=== PATIENT | male | born 1990 | race Caucasian/White ===

== ENCOUNTER 2017-03-26 23:03 | Emergency (ER) | payer SELFPAY ==
[~2017-03-26] VITALS: Ht 180.3 cm; Wt 65.4 kg
[2017-03-26 23:07] VITALS: TEMP 36.6; Ht 180.3 cm; Wt 65.4 kg
[2017-03-26] MEDS ORDERED: SODIUM CHLORIDE 0.9% 1000ML 2,000 ML IV STA (23:13)
[2017-03-26] MEDS ORDERED: KETOROLAC TROMETHAMINE 30 MG/ML VIAL IV STA (23:40)
[2017-03-26] MEDS ORDERED: ONDANSETRON 8 MG/54 ML D5W IV STA (23:40)
[2017-03-26 23:43] LABS: BASO % 0.3 %; BASO ABS # 0.03 K/uL (0-0.2); COMPLETE YES; EOS % 4.1 %; HEMATOCRIT 41.5 % (42-52); IG% 0.1 %; LYMPH % 46.1 %; MEAN CELL VOLUME 89.6 fL (80-100); MEAN CORPUSCULAR HEMOGLOBIN 30.9 pg (25-34); MEAN CORPUSCULAR HGB CONC 34.5 g/dl (32-36); MEAN PLATELET VOLUME 11.2 fL (7.4-10.4); NEUT % 43.4 %; PLATELET COUNT 224 K/uL (130-400); RED BLOOD COUNT 4.63 M/uL (4.7-6.1); WHITE BLOOD COUNT 9.54 K/uL (4.8-10.8)
[2017-03-26] MEDS ORDERED: PRLSR20 PO (23:43)
[2017-03-26] MEDS ORDERED: SERT50TA PO (23:43)
[2017-03-26] MEDS ORDERED: OPTIRAY 320 IV PRN (23:45)
[2017-03-27 00:03] LABS: ALKALINE PHOSPHATASE 92 U/L (45-117); ALT/SGPT 27 U/L (12-78); AST/SGOT 14 U/L (15-37); BLOOD UREA NITROGEN 12 mg/dl (7-18); BUN/CREATININE RATIO 12.5 (10-20); CALCIUM 9.1 mg/dl (8.5-10.1); CARBON DIOXIDE 25 mmol/L (21-32); CHLORIDE 108 mmol/L (98-107); GLUCOSE 101 mg/dl (70-99); POTASSIUM 3.8 mmol/L (3.5-5.1); SODIUM 141 mmol/L (136-145)
[2017-03-27] MEDS ORDERED: MoRPHine SULFATE 4 MG/ML 1 ML CARP\\VIAL IV STA (00:50)
[2017-03-27] MEDS ORDERED: PROMETHAZINE HCL INJ 25 MG in SODIUM CHLORIDE 0.9% 50ML 50 ML IV STA (00:50)
[2017-03-27] MEDS ORDERED: PHENERGAN 25MG HOMEPACK PO ONE (02:15)
[2017-03-27] MEDS ORDERED: BENTYL HOME PACK 10 MG VIAL PO ONE (02:15)
[2017-03-27 02:24] LABS: URINE APPEARANCE CLEAR (CLEAR); URINE BILIRUBIN NEG (NEG); URINE COLOR YELLOW; URINE NITRITE NEG (NEG); URINE SPECIFIC GRAVITY 1.043 (1.000-1.030); UROBILINOGEN NEG (NEG); ZZUR CULT IF INDIC CLEAN CATCH NO
[2017-03-27 02:50] LABS: MANUAL MICROSCOPIC REQUIRED? NO; REVIEW REQ? NO
[2017-03-27 03:12] VITALS: BP 116/66; PULSE 52; O2SAT 98
--- NOTE | 2017-03-27 03:16 | EMERGENCY ROOM VISIT NOTE ---
History Report prepared by [place]: Ricco Gomez Under the Supervision of: Dr. Ronald Whitley M.D. First contact with patient: 23:13 Chief Complaint: GI ASSESSMENT Stated Complaint: DIZZY,LIGHTHEADED,SHAKY,VOMITING Nursing Triage Summary: Abdominal pain started yesterday. Tonight lightheaded, weakness, nausea, vomiting, diarrhea, and intermittent headache. History of Present Illness The patient is a 26 year old male who presents to the Emergency Room with complaints of constant abdominal pain that started yesterday. The patient rates his discomfort as an 8/10 in severity. He reports that his lower abdominal pain is worse than the rest of his abdominal pain. He states that today he was laying in bed when he started to become weak and lightheaded. The patient states that he then started to experience nausea, vomiting, diarrhea, and a pounding headache. He states that he has experienced four episodes of diarrhea. The patient denies taking any medications, eating anything unusual, being around someone sick, and experiencing theses symptoms in the past. He admits that he recently had a rotator cuff repair and endoscopies as a child for his history of acid reflux and esophagitis. He reports experiencing chronic back pain. The patient denies LOC, headache, fevers, chills, diaphoresis, visual changes, neck pain, chest pain, breathing difficulties, melena, hematochezia, urinary symptoms, numbness, lymphadenopathy, rash, or other complaints. Source of History: patient Onset: yesterday Position: abdomen Symptom Intensity: 8/10 Timing: constant Associated Symptoms: + nausea, + vomiting, + back pain, + diarrhea, + weakness Review of Systems See HPI for pertinent positives and negatives. A total of ten systems were reviewed and were otherwise negative. Past Medical & Surgical Medical Problems: (1) Hx of gastroesophageal reflux (GERD) Surgical Problems: (1) S/P rotator cuff repair Family History Patient reports no known family medical history. Social History Smoking Status: Never Smoker Occupation Status: employed Current/Historical Medications Scheduled Sertraline (Zoloft), 50 MG PO DAILY Scheduled PRN Omeprazole (Prilosec), 20 MG PO DAILY PRN for Heartburn Allergies Coded Allergies: Cefaclor (Verified Allergy, Unknown, unknown, 03/26/17) Physical Exam Vital Signs Date Time Temp Pulse Resp B/P (MAP) Pulse Ox O2 Delivery O2 Flow Rate FiO2 8/29/17 00:03 55 17 99 03/27/17 00:01 133/72 03/26/17 23:53 57 20 98 03/26/17 23:43 73 17 99 03/26/17 23:33 60 18 98 03/26/17 23:31 117/75 03/26/17 23:23 65 18 97 03/26/17 23:15 123/76 03/26/17 23:07 36.6 62 20 133/76 98 Room Air Physical Exam GENERAL: Awake, alert, uncomfortable-appearing, in no distress HENT: Normocephalic, atraumatic. Oropharynx unremarkable. EYES: Normal conjunctiva. Sclera non-icteric. NECK: Supple. No nuchal rigidity. FROM. No JVD. RESPIRATORY: Clear to auscultation. CARDIAC: Regular rate, normal rhythm. Extremities warm and well perfused. Pulses equal. ABDOMEN: Soft, non-distended. Lower abdominal tenderness, worse on the right. No rebound or guarding. No masses. RECTAL: Deferred. MUSCULOSKELETAL: Chest examination reveals no tenderness. The back is symmetrical on inspection without obvious abnormality. There is no CVA tenderness to palpation. No joint edema. LOWER EXTREMITIES: Calves are equal size bilaterally and non-tender. No edema. No discoloration. NEURO: Normal sensorium. No sensory or motor deficits noted. SKIN: No rash or jaundice noted. Medical Decision & Procedures ER Provider Diagnostic Interpretation: Radiology results as stated below per my review and radiologist interpretation CT ABDOMEN & PELVIS: Impression: Mild bowel wall thickening of the small bowel and rectum which may be secondary to underdistention. However a nonspecific enteritis and proctitis is not excluded. Radiologist: Dwaine Fleming MD. Laboratory Results 03/26/17 23:20 Red Blood Count 4.63, Mean Corpuscular Volume 89.6, Mean Corpuscular Hemoglobin 30.9, Mean Corpuscular Hemoglobin Concent 34.5, Mean Platelet Volume 11.2, Neutrophils (%) (Auto) 43.4, Lymphocytes (%) (Auto) 46.1, Monocytes (%) (Auto) 6.0, Eosinophils (%) (Auto) 4.1, Basophils (%) (Auto) 0.3, Neutrophils # (Auto) 4.14, Lymphocytes # (Auto) 4.40, Monocytes # (Auto) 0.57, Eosinophils # (Auto) 0.39, Basophils # (Auto) 0.03 03/26/17 23:20 Test 03/26/17 23:20 03/27/17 01:35 White Blood Count 9.54 K/uL (4.8-10.8) Red Blood Count 4.63 M/uL (4.7-6.1) Hemoglobin 14.3 g/dL (14.0-18.0) Hematocrit 41.5 % (42-52) Mean Corpuscular Volume 89.6 fL (80-100) Mean Corpuscular Hemoglobin 30.9 pg (25-34) Mean Corpuscular Hemoglobin Concent 34.5 g/dl (32-36) Platelet Count 224 K/uL (130-400) Mean Platelet Volume 11.2 fL (7.4-10.4) Neutrophils (%) (Auto) 43.4 % Lymphocytes (%) (Auto) 46.1 % Monocytes (%) (Auto) 6.0 % Eosinophils (%) (Auto) 4.1 % Basophils (%) (Auto) 0.3 % Neutrophils # (Auto) 4.14 K/uL (1.4-6.5) Lymphocytes # (Auto) 4.40 K/uL (1.2-3.4) Monocytes # (Auto) 0.57 K/uL (0.11-0.59) Eosinophils # (Auto) 0.39 K/uL (0-0.5) Basophils # (Auto) 0.03 K/uL (0-0.2) RDW Standard Deviation 41.2 fL (36.4-46.3) RDW Coefficient of Variation 12.7 % (11.5-14.5) Immature Granulocyte % (Auto) 0.1 % Immature Granulocyte # (Auto) 0.01 K/uL (0.00-0.02) Anion Gap 8.0 mmol/L (3-11) Est Creatinine Clear Calc Drug Dose 102.6 ml/min Estimated GFR () 119.0 Estimated GFR (Non- 102.7 BUN/Creatinine Ratio 12.5 (10-20) Calcium Level 9.1 mg/dl (8.5-10.1) Total Bilirubin 0.6 mg/dl (0.2-1) Direct Bilirubin < 0.1 mg/dl (0-0.2) Aspartate Amino Transf (AST/SGOT) 14 U/L (15-37) Alanine Aminotransferase (ALT/SGPT) 27 U/L (12-78) Alkaline Phosphatase 92 U/L (45-117) Total Protein 7.4 gm/dl (6.4-8.2) Albumin 4.2 gm/dl (3.4-5.0) Lipase 194 U/L (73-393) Urine Color YELLOW Urine Appearance CLEAR (CLEAR) Urine pH 8.0 (4.5-7.5) Urine Specific Carney 1.043 (1.000-1.030) Urine Protein NEG (NEG) Urine Glucose (UA) NEG (NEG) Urine Ketones NEG (NEG) Urine Occult Blood NEG (NEG) Urine Nitrite NEG (NEG) Urine Bilirubin NEG (NEG) Urine Urobilinogen NEG (NEG) Urine Leukocyte Esterase NEG (NEG) Laboratory results reviewed by me Medications Administered Medications (Trade) Dose Ordered Sig/Roxana Route Start Time Stop Time Status Last Admin Dose Admin Sodium Chloride 2,000 ml @ 999 mls/hr Q2H1M STAT IV 03/26/17 23:13 03/27/17 01:13 DC 03/26/17 23:49 999 MLS/HR Ketorolac Tromethamine (Toradol Inj) 30 mg NOW STAT IV 03/26/17 23:40 03/26/17 23:41 DC 03/26/17 23:51 30 MG Ondansetron HCl (Zofran 8mg Iv) 8 mg NOW STAT IV 03/26/17 23:40 03/26/17 23:41 DC 03/26/17 23:52 8 MG Morphine Sulfate (MoRPHine SULFATE INJ) 4 mg NOW STAT IV 03/27/17 00:50 03/27/17 00:53 DC 03/27/17 01:37 4 MG Promethazine HCl 25 mg/Sodium Chloride 51 ml @ 204 mls/hr NOW STAT IV 03/27/17 00:50 03/27/17 01:04 DC 03/27/17 01:40 204 MLS/HR Dicyclomine HCl (Dicyclomine HCl 10MG Home Pack) 1 ea UD ONCE PO 03/27/17 02:15 03/27/17 02:16 DC 03/27/17 03:07 1 EA Promethazine HCl (Phenergan 25MG Home Pack) 1 homepack UD ONCE PO 03/27/17 02:15 03/27/17 02:16 DC 03/27/17 03:07 1 HOMEPACK ED Course 2313: Ordered Sodium Chloride 2000 ml @ 999 mls/hr IV. 2337: The patient was evaluated in room B10. A complete history and physical exam was performed. 2340: Ordered Zofran 8 mg IV, Toradol Injection 30 mg IV. 0050: Ordered Promethazine HCl 25 mg/ Sodium Chloride 51 ml @ 204 mls/hr IV, Morphine Sulfate 4 mg IV. 0119: I reevaluated the patient and he is giving a urine sample. 0212: I reevaluated the patient. Discussed results and discharge instructions: He verbalized understanding and agreement. The patient is ready for discharge. 0215: Ordered Promethazine HCl 1 homepack PO, Dicyclomine HCl 1 each PO. Medical Decision No prior records available for review in the EMR. Triage Nursing notes reviewed and agree them. The patient's history was concerning for nausea, vomiting, diarrhea, and abdominal pain. Differential diagnosis: Etiologies such as gastroenteritis, food borne illness, infections, appendicitis , diverticulitis, inflammatory bowel disease, GI bleed, biliary pathology, as well as others were entertained. Physical examination findings: As above. ER treatment provided: IV hydration 2 L NSS. IV Zofran IV Toradol On reassessment the patient felt somewhat better but still had abdominal discomfort. IV morphine 4 mg IV Phenergan 25 mg On reassessment the patient felt much better. Patient was tolerating p.o. intake. Diagnostics interpretation by me: The labs revealed an unremarkable CBC, chemistry panel, LFTs, lipase and urinalysis. Imaging studies: CT scan as above The patient presented with nausea, vomiting, and diarrhea along with abdominal pain. His blood work and imaging were unremarkable. He was unable to provide a stool sample in the Emergency Room. Conservative management was discussed. The patient felt comfortable. He'll follow-up with his primary when he returns home. By the evaluation outlined above emergent etiologies such as appendicitis , diverticulitis, mesenteric ischemia, aortic pathology, inflammatory bowel disease, renal colic, PUD, biliary pathology, UTI, as well as others were deemed relatively unlikely. The patient was informed about the findings as listed above. All questions were answered and he was pleased with the treatment. Return instructions were outlined and the patient was discharged in stable condition. Outpatient prescription management: Phenergan home pack Bentyl home pack Referral: The patient was referred to his primary care physician for follow-up in 2 to 3 days for a recheck of the current condition. [place] Drug Monitoring Program Search Results: patient reviewed within database, see additional documentation Drug Monitoring Findings: 3 prescriptions noted. Medication Reconcilliation Current Medication List: was personally reviewed by me Blood Pressure Screening Patient's blood pressure: Elevated blood pressure Blood pressure disposition: Elevated BP felt to be situational Impression Primary Impression: Nausea, vomiting, and diarrhea Additional Impressions: Lower abdominal pain Enteritis Scribe Attestation The scribe's documentation has been prepared under my direction and personally reviewed by me in its entirety. I confirm that the note above accurately reflects all work, treatment, procedures, and medical decision making performed by me. Departure Information Dispostion Home / Self-Care Referrals No Doctor, Assigned (PCP) Forms HOME CARE DOCUMENTATION FORM, IMPORTANT VISIT INFORMATION Patient Instructions My [facility] Additional Instructions DO NOT drive, drink alcohol, operate machinery, or perform dangerous activities today. You were given medications in the ER that can affect your ability to safely function or operate a vehicle. Bentyl(dicyclomine) 10 mg: Take one tablet 4 times daily as needed for abdominal pain. Phenergan(promethazine) tablets 25mg: Take one every six hours as needed for nausea. Avoid alcohol, operating machinery or dangerous equipment, working on ladders or roofs, DRIVING, or situations where being under the influence may be dangerous. Ibuprofen(Motrin, Advil) may be used for fever or pain. Use 600mg every six hours as needed. Take with food. Avoid using more than 2400mg in a 24 hour period. Do not use 2400mg per day for more than three consecutive days without physician direction. Prolonged inappropriate use can lead to stomach upset or ulcers. (AND/OR) Acetaminophen(Tylenol) may be used for fever or pain. Use 1000mg every six hours as needed. Avoid using more than 4000mg in a 24 hour period. Rest and drink plenty of fluids as tolerated. Slow sips of water or sports drinks are recommended instead of large amounts all at once. Continue current medications. Once your stomach is settled start with a clear liquid diet (jello, soup broth, etc.) and then advance as tolerated. You should avoid full, heavy meals for about 24 hrs from the time your symptoms resolved. Return to the ER for persistent vomiting, fevers, abdominal pain, chest pains, difficulty breathing, black or bloody stools, worsening of your condition, or as needed. Follow up with your primary physician in 2-3 days for a recheck of your current condition Problem Qualifiers
--- NOTE | 2017-03-27 07:12 | DIAGNOSTIC IMAGING REPORT ---
ABDOMEN AND PELVIS CT WITH IV CONTRAST CT DOSE: 272.90 mGy.cm HISTORY: lower abd pain, diarrhea, ? Colitis TECHNIQUE: Multiaxial CT images of the abdomen and pelvis were performed following the use of intravenous contrast. A dose lowering technique was utilized adhering to the principles of ALARA. COMPARISON STUDY: None. FINDINGS: The lung bases are clear. No fractures within the visualized osseous structures. Mild periportal edema which favors aggressive hydration. The spleen, adrenal glands, pancreas, kidneys, and gallbladder are within normal limits. The gallbladder is contracted. Normal bladder. No pelvic free fluid. No retroperitoneal lymphadenopathy. Thickening of the small bowel within the left side the abdomen and mild rectal wall thickening. This favors underdistention. No evidence for bowel obstruction. IMPRESSION: Thickening of the small bowel within the left side of the abdomen and mild rectal wall thickening. This favors underdistention. There is no surrounding inflammatory change at this time to suggest an acute process. However, a low-grade enteritis/proctitis cannot be entirely excluded. Electronically signed by: Santana Quesada M.D. 03/27/2017 7:11 AM Dictated Date/Time: 03/27/2017 7:06 AM
== END 2017-03-27 03:16 | disposition home or self-care (01) ==
LOC: C.EDB 23:05
DX: K52.9 Noninfective gastroenteritis and colitis, unspecified (principal); R11.2 Nausea with vomiting, unspecified; K21.9 Gastro-esophageal reflux disease without esophagitis; Z98.890 Other specified postprocedural states; Z79.899 Other long term (current) drug therapy; Z88.8 Allergy status to other drugs, medicaments and biological substances